=== PATIENT | female | born 1995 | race Caucasian/White ===

== ENCOUNTER 2023-06-20 16:06 | Emergency (ER) | payer OTHER, SELFPAY ==
[2023-06-20 16:14] VITALS: BP 149/84; PULSE 121; RESP 24; TEMP 37.6; O2SAT 100
--- NOTE | 2023-06-20 16:26 | ED.GENADULT ---
HPI - General Adult General Chief complaint: OB/Uterine Contractions Stated complaint: Shortness of Breath Time Seen by Provider: 06/20/23 16:26 Source: patient Mode of arrival: ambulatory Limitations: no limitations History of Present Illness HPI narrative: 27y/o female presented for c/o tunnel vision, dizziness, headaches, and chest heaviness for 3 days. At onset she felt dizzy, became pale, with profuse sweating and states she felt like she was incoherent for about 10 minutes. Since then she has had headaches unrelieved with tylenol. Denies vaginal bleeding, urinary complaints, nausea, vomiting, cough or wheezing. Reports hx pre-eclampsia, reports she was told she has MCI this . 25 weeks gestation. Related Data Home Medications Medication Instructions Recorded Confirmed vitamin-ferrous fumarate 1 tablet PO DAILY 06/20/23 06/20/23 28 mg iron-folic acid 800 mcg tablet ( Tablet) sertraline 50 mg tablet 50 mg PO DAILY 06/20/23 06/20/23 Allergies Allergy/AdvReac Type Severity Reaction Status Date / Time amoxicillin Allergy Mild Hives Verified 06/20/23 17:06 Review of Systems Review of Systems: CONSTITUTIONAL: Denies body aches, fever, chills, or sweats. EYES: reports visual changes, denies redness, or discharge. ENT: Denies rhinorrhea, congestion, sore throat, or otalgia. CARDIOVASCULAR: Denies chest pain, or edema. RESPIRATORY: Reports chest heaviness Denies cough or dyspnea. GASTROINTESTINAL: Denies abdominal pain, nausea, vomiting, or diarrhea. GENITOURINARY: Denies vaginal bleeding, dysuria or hematuria. SKIN: Denies rash, itching, or wounds. MUSCULOSKELETAL: Denies back pain, joint pain, or myalgia. NEUROLOGIC: reports dizziness, headache, denies numbness, tingling, or weakness. All systems reviewed & are unremarkable except as noted in HPI and below PMFSH Comments At time of signature, I have reviewed and agree with nursing past medical, surgical, social and family history unless otherwise noted. Please see nursing chart for further information. There is no relevant family history pertinent to the presenting complaint Exam Narrative: GENERAL: Well-appearing EYES: EOMI. No redness or drainage. Conjunctivae normal. ENT: Mucous membranes pink and moist. No rhinorrhea. TMs normal bilaterally. Throat normal. Uvula midline. NECK: Normal AROM. Supple. No lymphadenopathy. CHEST: No respiratory distress. Clear to auscultation. HEART: Regular rate and rhythm. No murmur appreciated. Normal peripheral pulses. ABDOMEN: Gravid. EXTREMITIES: Normal range of motion. No edema. SKIN: Warm, dry, no rash. Capillary refill normal. Normal skin turgor. NEURO: No focal deficits. Alert and oriented x3. Gait steady. PSYCH: Normal affect. Course Course Emergency Course: Patient is aware of diagnosis, understands and agrees to treatment plan. Anticipatory guidance given. Patient agrees to follow-up as directed and is aware of reasons to seek care at the emergency department. Portions of this record may have been created with voice recognition software Level of Care: Express Care Visit Vital Signs Vital signs: Vital Signs Temperature 99.7 F H 06/20/23 16:14 Pulse Rate 121 H 06/20/23 16:14 Respiratory Rate 24 H 06/20/23 16:14 Blood Pressure 149/84 H 06/20/23 16:14 Pulse Oximetry 100 06/20/23 16:14 Oxygen Delivery Room Air 06/20/23 16:14 Temperature 99.7 F H 06/20/23 16:14 Pulse Rate 121 H 06/20/23 16:14 Respiratory Rate 24 H 06/20/23 16:14 Blood Pressure 149/84 H 06/20/23 16:14 Pulse Oximetry 100 06/20/23 16:14 Oxygen Delivery Room Air 06/20/23 16:14 Transfer Transfered to: [facility] Transportation: Other (private vehicle) Transfer rationale: Pt is agreeable to transfer. Requests transfer to [facility] via private vehicle; refused ambulance. Risks of transportation reviewed with pt including injury,
[2023-06-20 16:37] LABS: Glucose Point of Care 102 mg/dl (65-105)
== END 2023-06-20 17:15 | disposition short-term general hospital (02) ==
PROVIDERS: Emergency Provider Nurse Practitioner Family
DX: O99.891 Other specified diseases and conditions complicating pregnancy (principal); R42 Dizziness and giddiness; Z3A.25 25 weeks gestation of pregnancy; Z20.822 Contact with and (suspected) exposure to COVID-19; O99.342 Other mental disorders complicating pregnancy, second trimester; F32.A Depression, unspecified
CPT/HCPCS: 82948; 87426; 87804; 99213; G0463

== ENCOUNTER 2023-07-28 13:32 | Outpatient (RCR) | payer OTHER, SELFPAY ==
[2023-07-30] MEDS: RHO(D) IMMUNE GLOBULIN 300 MCG/2 ML SYRINGE IM (15:21)
== END 2023-10-26 23:59 | disposition home or self-care (01) ==
LOC: ANHLAB 13:32
PROVIDERS: Visit Provider Obstetrics & Gynecology
DX: Z29.13 Encounter for prophylactic Rho(D) immune globulin (principal); O36.0190 Maternal care for anti-D [Rh] antibodies, unspecified trimester, not applicable or unspecified; Z3A.00 Weeks of gestation of pregnancy not specified
CPT/HCPCS: 36415; 85461; 86850; 86900; 86901; 90384; 96372; J2790

== ENCOUNTER 2023-08-08 16:10 | Outpatient (RCR) | payer OTHER, SELFPAY ==
[2023-08-08 17:35] VITALS: BP 126/70
== END 2023-11-06 23:59 | disposition home or self-care (01) ==
LOC: ANHOBOP 16:10
PROVIDERS: Visit Provider Obstetrics & Gynecology
DX: O36.8330 Maternal care for abnormalities of the fetal heart rate or rhythm, third trimester, not applicable or unspecified (principal); Z3A.32 32 weeks gestation of pregnancy
CPT/HCPCS: 59025

== ENCOUNTER 2023-09-26 06:23 | Inpatient (IN) | payer OTHER, SELFPAY ==
[2023-09-26] VITALS (86 sets, daily range): BP systolic 59–220; BP diastolic 44–198; PULSE 71–180; RESP 16; TEMP 36.1–37.1; O2SAT 91–100; BMI 35.5
--- NOTE | 2023-09-26 06:50 | LDADM ---
This patient, Ebonie Wiseman, was admitted to Labor/Delivery/Recovery 104 on 09/26/23 at 06:23. Plans for labor, pain management and were discussed with patient. Patient/family oriented to hospital policies and general routines including ID bracelet, bed and alarms, visiting hours, pain management, procedures, bathroom and other care routines, personal items, smoking policy, room service/diet and guest tray routines, security routines, and visiting hours. Patient/Family are encouraged to report perceived risks to care and to ask questions if they do not understand what they are told or what they should do. See OBIX for further documentation.
[2023-09-26 06:54] LABS: Hematocrit 37.6 % (37.0-47.0); Hemoglobin 12.9 g/dL (12.0-15.0); Immature Platelet Fraction Pct 7.7 % (0.9-11.2); Mean Corpuscular HGB Conc 34.3 g/dl (32-36); Mean Corpuscular Hemoglobin 32.1 pg (26-34); Mean Corpuscular Volume 93.5 fl (80-100); Mean Platelet Volume 10.7 fl (7.4-10.4); Platelet Count Result 111 k/mm3 (150-375); Red Blood Count 4.02 M/mm3 (4.2-5.4); Red Cell Distribution Width 16.1 % (11.5-14.5); White Blood Count 9.5 K/mm3 (4.5-10.0)
[2023-09-26] MEDS: LACTATED RINGERS 1,000 ML 125 ML IV CONT ×3 (06:59→08:57)
[2023-09-26] MEDS: OXYTOCIN 30 UNITS/NS 500 ML 30 UNITS/500 ML BAG IV CONT (06:59)
--- NOTE | 2023-09-26 07:27 | WPDHPUPDATE1 ---
History and Physical Update Update Date/Time: 09/26/23 07:27 28-year-old multiparous female at term presents for elective induction of labor. Cervix is 1/70/-1. Artificial rupture of membranes was performed. Clear fluid. Reassuring heart tones. Pitocin has been started. Expectant management. History and Physical has been reviewed, including an updated exam of the patient. There are NO changes in the patient's condition. Risks, benefits, and alternatives have been discussed and questions answered. Patient agrees to proceed with procedure.
--- NOTE | 2023-09-26 07:32 | WPDOBADMIT ---
Obstetrics - Admit Note Admission Note: record reviewed. No pertinent additions to the history and/or any subsequent changes in the physical findings that are not consistent with the expected course of the were found. Additions to the history and/or subsequent changes in the physical findings follow. Admit for IOL SVE /-2 arom moderate amount of clear, odorless fluid, anticipate vaginal delivery
[2023-09-26 07:48] LABS: HIV 1/2 Ab P24 Ag Result Negative (Negative)
[2023-09-26 07:57] LABS: Eosinophils Absolute Manual 0.09 K/mm3 (0.02-0.50); Eosinophils Percent Manual 1 % (0-4); Lymphocytes Absolute Manual 1.61 K/mm3 (1.1-4.5); Lymphocytes Percent Manual 17 % (18-44); Monocytes Absolute Manual 0.19 K/mm3 (0.1-0.90); Monocytes Percent Manual 2 % (3-9); Neutrophils Absolute Manual 7.69 K/mm3 (1.7-7.2); Neutrophils Percent Manual 80 % (46-73)
[2023-09-26 07:58] LABS: Platelet Estimate Decreased (Adequate); Schistocytes None Seen
[2023-09-26] MEDS: ONDANSETRON INJ 4 MG/2 ML VIAL IV PUSH (10:56)
[2023-09-26] MEDS: miSOPROStol 200 MCG TABLET 800 MCG (12:15)
--- NOTE | 2023-09-26 12:21 | PM.OBPRVD ---
OB - Vaginal Delivery Note Procedure Delivery date: 09/26/23 Induction method: AROM and Per Pitocin Protocol Delivery monitor: External FHT and Internal Uterine Route of delivery: Episiotomy description: None Laceration Description: None Specimen: No Quantitative Blood Loss (ml): 400 Anesthesia type: Epidural Disposition: Floor Complications: No immediate complications Baby Date of : 09/26/23 Time of : 11:56 Weeks of gestation at delivery: 39 gender: Male Weight (pounds): 7 Weight (ounces): 5 presentation: vertex Placenta delivery description: Manual Removal Cord Vessel Description: 3 Vessels score one minute: 7 score five minutes: 9
[2023-09-26] MEDS: ceFAZolin 2 GM/D5W 50 ML 2 GM/50 ML BAG IVPB (12:32)
[2023-09-26] MEDS: OXYTOCIN 30 UNITS/NS 500 ML 30 UNITS/500 ML BAG 125 UNITS IV CONT (12:40)
[2023-09-26] MEDS: WITCH HAZEL 40 PADS 1 PAD TOPICAL (14:25)
[2023-09-26] MEDS: BENZOCAINE 20% AER SPR (*SP) 56 GM CAN 1 SPRAY TOPICAL (14:25)
--- NOTE | 2023-09-26 14:37 | PC.NURSE ---
Patient transferred to post room #281 via wheel chair. Support person present. Oriented to unit, room, information board, rooming in, admission packet and security measures. Patient verbalizes understanding.
[2023-09-26] MEDS: IBUPROFEN 600 MG TABLET PO ×2 (15:56→23:07)
--- NOTE | 2023-09-26 17:09 | PC.NURSE ---
[facility] worker Aifelisha Mai called to notify us that [facility] was notified about this patient delivering and that she will be coming in tomorrow 09/27/2023 to see this patient. Ai Sergei's phone number is [phone]. Voice mail left for care coordination with this information.
[2023-09-26] MEDS: ACETAMINOPHEN 325 MG TABLET 650 MG PO (21:03)
[2023-09-27 00:56] VITALS: BP 133/77; PULSE 84; RESP 18; TEMP 36.8; O2SAT 97
[2023-09-27] MEDS: ACETAMINOPHEN 325 MG TABLET 650 MG PO ×3 (03:40→19:49)
[2023-09-27] MEDS: IBUPROFEN 600 MG TABLET PO ×3 (05:44→19:49)
[2023-09-27 06:09] LABS: Hematocrit 30.4 % (37.0-47.0); Hemoglobin 10.4 g/dL (12.0-15.0)
[2023-09-27 08:25] VITALS: BP 122/79; PULSE 90; RESP 16; TEMP 36.6; O2SAT 99
[2023-09-27] MEDS: buPROPion HCL XL (24 HR) 150 MG TABCR PO (09:10)
[2023-09-27] MEDS: MULTIVIT/MIN/PREN/FOL AC/IRON TABLET 1 TAB PO (09:11)
[2023-09-27] MEDS: SERTRALINE HCL 50 MG TABLET 100 MG PO (09:11)
--- NOTE | 2023-09-27 09:37 | PCCCNOTE ---
Care Coordination: Consult received mother has a history of meth us and has open DCFS. Mother was sober, but then had a relapse for a week early on in the per the DCFS worker. CC meet with pt. and baby in room. [facility] Ai Mai ([phone]) worker was already in the room and reported she works in the [employer] office. Pt. already has two other children not in her care Isabel (4 years old), Mathew (2) years old and now they will be taking baby boy Ivone in their custody as well at [place]. KATLYN Ngo aware of the above. Ai with [facility] denied need for case to be called in as they are already on the case and following. Ai aware per KATLYN Ngo did not see signs of withdraw, but another nurse thought pt. was having tremors but it was improving and may be due to other medications she was taking. Pt. is living at home with her parents and DCFS will contact her regarding her visits at [facility] which can be 12 hours a day, she just cannot stay the night with baby. Pt. was very tearful regarding the discussion. Father of the baby is currently in rehab and plans on doing 30 more days per mother's caser in [place]. Toxicology is still pending and Ai Mai with [facility] is aware. Baby to [place] with DCFS when medically ready, RN and mother aware of the above.
[2023-09-27 13:46] LABS: Rapid Plasma Reagin Non-Reactive (NonReactive)
--- NOTE | 2023-09-27 14:08 | WPDANLDPN2 ---
Anes-Prog Note L&D Date/Time: 09/27/23 14:08 Comfortable throughout: labor and delivery Neuraxial method: epidural Epidural/Spinal procedure site: clean & non-tender Neuro status: Neuro function grossly intact. Cardiovascular status: normal Respiratory status: normal Airway patency: baseline Mental status: baseline Post-Op hydration status: normal Vital Signs: Last Vital Signs Temp 36.6 C 09/27/23 08:25 Pulse 90 09/27/23 08:25 Resp 16 09/27/23 08:25 BP 122/79 09/27/23 08:25 Pulse Ox 99 09/27/23 08:25 O2 Del Method Room Air 09/27/23 07:13 Pain score (VAS): 1 I/O: Intake & Output 09/26/23 09/27/23 09/27/23 23:59 07:59 15:59 Intake Total 500 280 Balance 500 280 Post-procedural complaints: none Patient feedback: Patient satisfied with anesthetic care.
[2023-09-27 19:45] VITALS: BP 137/83; PULSE 86; RESP 18; TEMP 36.5; O2SAT 100
--- NOTE | 2023-09-27 21:33 | PM.OBPNVD ---
OB - PN: Subj Subjective Date/time seen: 09/27/23 21:33 Patient comments: no complaints, pain well controlled, incisional pain, tolerating diet and flatus present OB - PN: Obj Data Labs 09/27/23 05:50 Labs: Laboratory Results - last 24 hr 09/26/23 09/27/23 06:36 05:50 Hgb 10.4 L Hct 30.4 L RPR Non-reactive OB - PN A/P Plan day: 1 Plan: routine care Comments: No problems, routine care Time Spent With Patient Time: Total time spent is greater than 50% in coordination of care (as documented) at patient's floor/unit and/or counseling patient: Exam Const: General: comfortable, no acute distress and alert Resp: Effort & Inspection: normal respiratory effort Auscultation: no crackles, no rales and no rhonchi Cardio: Rate: regular rate Heart sounds: no click, no murmurs and no rubs GI: Inspection: non-distended GI Palp: No Tenderness to palpation present (GI) Auscultation: normal bowel sounds Other: Incision - CDI Extrem: General: normal to inspection, no pedal edema and no calf tenderness
[2023-09-28] MEDS: IBUPROFEN 600 MG TABLET PO ×3 (02:17→19:10)
[2023-09-28] MEDS: ACETAMINOPHEN 325 MG TABLET 650 MG PO ×2 (02:17→19:10)
[2023-09-28 07:30] VITALS: BP 124/78; PULSE 88; RESP 16; TEMP 36.6; O2SAT 99
--- NOTE | 2023-09-28 07:47 | PM.OBPNVD ---
OB - PN: Subj Subjective Date/time seen: 09/28/23 07:47 Narrative: pp day 2 baby in DCFS custody, monitoring for withdrawl no complaints OB - PN: Obj Data Labs 09/27/23 05:50 Labs: Laboratory Results - last 24 hr 09/26/23 06:36 RPR Non-reactive OB - PN A/P Plan day: 2 Plan: routine care and discharge home Time Spent With Patient Time: Total time spent is greater than 50% in coordination of care (as documented) at patient's floor/unit and/or counseling patient: Review of Systems Review of Systems: All systems reviewed & are unremarkable except as noted in HPI and below Exam Const: General: cooperative and healthy appearing Resp: Effort & Inspection: normal respiratory effort Cardio: Rate: regular rate Skin: General skin exam: normal color
--- NOTE | 2023-09-28 07:49 | PM.OBDSVD ---
DS: Admitting Diagnosis Discharge Date 09/28/23 Admitting Diagnosis IOL DS: Discharge Diagnosis Discharge Diagnosis (1) Vaginal delivery: Code(s): O80 - Encounter for full-term uncomplicated delivery Status: Acute OB - DS: Summary OB Procedures : None OB Procedures Intrapartum: Spontaneous Vag Delivery OB Procedures: : None Peripartum Data Laceration Description: None Episiotomy description: None Time Spent with Patient Time attestation: Total time spent providing and/or coordinating discharge services: DS: Data Data Completed and Pending Labs on day of discharge: Labs from last 24 hours 09/26/23 06:36 RPR Non-reactive Discharge Plan Discharge Attending physician on discharge: Beau Koehler Discharging Clinician: Aure Yepez Patient Disposition: Home, Self-Care Activity: pelvic rest Diet: regular Patient Instructions: Antibiotic Form, Electronic Cigarettes and Your Health (GEN) Stand Alone Forms: General Discharge Information Follow-up/Referrals: Beau Koehler MD [Physician] - 2 Weeks Discharge Medications: New ibuprofen 600 mg Tablet 600 mg PO Q6H PRN (Reason: Cramping) Qty: 20 0RF Continued sertraline 50 mg tablet 100 mg PO DAILY MDD 100 vit-iron fum-folic ac [ Tablet] 28 mg iron- 800 mcg Tablet 1 tablet PO DAILY bupropion HCl [Wellbutrin XL] 150 mg Tablet Extended Release 24 Hr 150 mg PO QAM Date of admission: 09/26/23 06:23 Primary Care Provider: UNKNOWN,DOCTOR Admitting Provider: Beau Koehler Attending physician on admission: Beau Koehler Condition: Stable
[2023-09-28] MEDS: WITCH HAZEL 40 PADS 1 PAD TOPICAL (07:55)
[2023-09-28] MEDS: BENZOCAINE 20% AER SPR (*SP) 56 GM CAN 1 SPRAY TOPICAL (07:55)
[2023-09-28] MEDS: buPROPion HCL XL (24 HR) 150 MG TABCR PO (07:55)
[2023-09-28] MEDS: DOCUSATE SODIUM 100 MG CAPSULE PO (07:55)
[2023-09-28] MEDS: SERTRALINE HCL 50 MG TABLET 100 MG PO (07:56)
--- NOTE | 2023-09-28 19:55 | PC.NURSE ---
1237 RN called and spoke with Care Coordination, let them know that the mother would be discharged to a No Care Bed later this evening and baby would be staying for a total of 5 days to monitor for symptoms of withdrawal per the Advertising Project Manager. RN would like to know if it is ok for the mother to stay with the baby overnight in the room and still care for him? Per Care Coordination should be ok for mother to stay until DCFS comes and takes custody. RN is going to call [facility] to clarify. 1243 RN left message on voicemail of Ai Mai ([facility] dependency case manager for baby) #[phone] to call the hospital. 1330 RN spoke with the mother's own dependency case manager with [facility], Stefanie Casanova #[phone], per Stefanie, she will try to contact Ai Mai as well and call the RN back. 1509 RN spoke with Stefanie Casanova, who says she spoke with Ai Mai, and it is OK for baby to stay with the mother in an assigned room and visitors are OK as well. The mother is NOT able to leave with the baby and she is aware. RN also asked Stefanie, who will be giving medical consent for the baby and since the mother already signed the consent for the circumcision, is that ok to keep on file and use that consent to circumcise baby in the next few days before discharge? Stefanie is going to talk with Ai and have her call this RN. 1518 RN spoke with Ai Mai, per her, baby was taken into protective custody by [facility] as of 09/27/23 @ 2125. This RN was not aware of this and neither was Madhuri Kohler RN, who took care of the patient and the baby for the last shift. Per Ai, it is ok to use the signed consent for the circumcision to be done before discharge. IF in the event that there would be any other consents needed, the mother CANNOT sign, we need to call the [facility] Consent # and give them the baby's RIN #[id number]. The plan is to hopefully discharge baby on Sunday10/01/23 to the paternal grandmother through [facility]. Whoever is discharging should call Ai Mai #[phone] and let her know, she is in court for this case on Sunday @ 0900 but will be able to come later and do the discharge. Copy of note to be put in baby's chart
== END 2023-09-28 19:43 | disposition home or self-care (01) | DRG 807 ==
LOC: ANHLDR 06:27 → ANHOB2 15:09
PROVIDERS: Admitting Provider Obstetrics & Gynecology; Visit Provider Obstetrics & Gynecology
DX: O69.81X0 Labor and delivery complicated by cord around neck, without compression, not applicable or unspecified (principal); Z37.0 Single live birth; Z3A.39 39 weeks gestation of pregnancy
CPT/HCPCS: 36415; 85014; 85018; 85025; 85055; 86592; 86703; 86850; 86880; 86900; 86901; 86902; A9270; G0432; J0690; J2405; J2590; J2795; J7120

== ENCOUNTER 2024-03-17 12:30 | Emergency (ER) | payer OTHER, SELFPAY ==
[2024-03-17 12:37] VITALS: BP 139/91; PULSE 117; RESP 18; TEMP 37.3; O2SAT 100
--- NOTE | 2024-03-17 13:21 | ED.URI ---
HPI - URI/Sore Throat General Chief Complaint: Upper Respiratory Infection Stated Complaint: cold/flu symptoms Time Seen by Provider: 03/17/24 13:15 Source: patient, RN notes reviewed and old records reviewed Mode of arrival: ambulatory Limitations: no limitations History of Present Illness HPI Narrative: 28-year-old female presents to [facility] with complaints of 2 week duration cough, sinus congestion and drainage, some intermittent fevers with chills. Patient reports that when her symptoms first started she had some ear discomfort and some sore throat but that has resolved. Patient reports that she coughs so much at night that she is not resting. Ptient reports that she has been taking Mucinex, Flonase cough drops and some Tylenol for her symptoms. MD elicited complaint: fever (intermittent low grade), cough, rhinorrhea and nasal congestion Onset (ago): week(s) (2) Severity: moderate Description of mucous: clear Able to tolerate fluids by mouth: Yes Treatments prior to arrival: acetaminophen and other (Mucinex, Flonase,Tylenol, cough drops) Related Data Home Medications ?Medication ?Instructions ?Recorded ?Confirmed ?Last Taken ?Type vitamin-ferrous fumarate 1 tablet PO DAILY 06/20/23 09/26/23 09/26/23 History 28 mg iron-folic acid 800 mcg tablet ( Tablet) sertraline 50 mg tablet 100 mg PO DAILY 06/20/23 09/26/23 09/26/23 History 0600 bupropion HCl 150 mg 24 hr tablet, 150 mg PO QAM 08/10/23 09/26/23 09/26/23 History extended release (Wellbutrin XL) 0600 naltrexone 50 mg tablet mg 03/17/24 Unknown History topiramate 25 mg tablet mg 03/17/24 Unknown History Allergies Allergy/AdvReac Type Severity Reaction Status Date / Time amoxicillin Allergy Mild Hives Verified 09/14/23 13:36 Review of Systems Review of Systems: CONSTITUTIONAL: Reports malaise,intermittent chills, sweats, or fever. EYES: Denies visual changes, redness, or discharge. ENT: Reports rhinorrhea, congestion, sinus pain, no otalgia and no sore throat. CARDIOVASCULAR: Denies chest pain, palpitations, or edema. RESPIRATORY: Reports cough.? Denies dyspnea. GASTROINTESTINAL: Denies abdominal pain, nausea, vomiting, diarrhea SKIN: Denies rash or itching. MUSCULOSKELETAL: Denies myalgia. NEUROLOGIC: Denies headache. 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 There is no relevant family history pertinent to the presenting complaint Exam Narrative: GENERAL: Well-appearing, well-nourished, and in no acute distress. HEAD: Normocephalic EYES: PERRLA, conjunctivae clear ENT: Nares clear, turbinates edematous and erythematous, clear discharge. Mucous membranes moist. TM pearly kent with dull light reflex bilaterally; no tragal tenderness. Oropharynx erythematous without lesions. Tonsils not present and throat without exudate, no drooling, no hoarseness, no trismus, uvula midline.post nasal drainage NECK: Supple. No lymphadenopathy CHEST: Clear to auscultation, breath sounds equal. No wheezing, rhonchi, rales, or stridor. No respiratory distress, speaks in full sentences. no tachypnea, cough noted SAO2 100% on room air HEART: Regular rate and rhythm. No murmur heard. SKIN: Warm, dry, no rash. NEURO: Alert and oriented x3. PSYCH: Normal mood and affect Course Course Emergency Course: Patient is aware of diagnosis, understands and agrees to treatment plan.? Anticipatory guidance given.? Patient agrees to follow-up as directed and is aware of reasons to seek care at the emergency department. Portions of this record may have been created with voice recognition software Level of Care: Express Care Visit Vital Signs Vital signs: Vital Signs Temperature 37.3 C 03/17/24 12:37 Pulse Rate 117 H 03/17/24 12:37 Respiratory Rate 18 03/17/24 12:37 Blood Pressure 139/91 H 03/17/24 12:37 Pulse Oximetry 100 03/17/24 12:37 Oxygen Delivery Room Air 03/17/24 12:37 Temperature 37.3 C 03/17/24 12:37 Pulse Rate 117 H 03/17/24 12:37 Respiratory Rate 18 03/17/24 12:37 Blood Pressure 139/91 H 03/17/24 12:37 Pulse Oximetry 100 03/17/24 12:37 Oxygen Delivery Room Air 03/17/24 12:37 Reviewed MDM - URI/Sore Throat MDM Narrative Medical decision making narrative: Differential diagnosis considered: Wahl virus, strep pharyngitis, allergic rhinitis, upper respiratory tract infection, sinusitis, rhinosinusitis, nasopharyngitis. viral pharyngitis, otitis media, otitis externa, pneumonia, bronchitis, viral cough syndrome, viral syndrome, and influenza.? Exam findings show no acute concerns or changes; patient is non-toxic appearing and is in no distress.? Patient is appropriate for outpatient treatment and follow-up. Differential Diagnosis Differential diagnosis: Likely upper respiratory infection, sinusitis, viral infection and other (acute cough) Medical Records Attestation: I reviewed the patient's medical records. Lab Data Attestation: I reviewed the patient's lab results. Critical Care Time Critical Care Time Critical Care Time: No Discharge Plan Discharge Clinical Impression: Sinusitis Qualifiers: Sinusitis location: pansinusitis Chronicity: acute Recurrence: non-recurrent Qualified Code(s): J01.40 - Acute pansinusitis, unspecified Patient Disposition: Home, Self-Care Condition: Stable Instructions: Antibiotic Form, Sinusitis (ED) Additional Instructions: Increase fluids especially juices and water Tpuj-sts-[id number] cough and cold medicine of your choice for your symptoms Zyrtec Claritin or Debo daily heat to the face 20-30 minutes 4-6 times a day for pain Salt water gargles, throat lozenges or throat sprays as desired Antibiotic as directed--finished the medication If your symptoms persist, change or worsen significantly before you can contact your personal physician then please, without delay, go to the emergency department for further evaluation. Follow-up with PCP in 7-10 days or sooner if needed Follow up with PCP soon in regards to your blood pressure which is elevated above threshold for referral. Blood pressure above 120/80 may indicate pre-hypertension. Tylenol or ibuprofen for any fever pain monitor for any fevers Patient Language: [place] Prescriptions: New azithromycin 250 mg tablet See Rx Instructions .ROUTE .COMPLEX Qty: 6 0RF Rx Instructions: For 250 mg dose pack: take 500 mg today (day 1), then 250 mg for 4 days (days 2-5) methylprednisolone [Medrol (Tono)] 4 mg tablets,dose pack See Rx Instructions .ROUTE .COMPLEX Qty: 21 0RF Rx Instructions: orally per package directions No Action sertraline 50 mg tablet 100 mg PO DAILY MDD 100 vit-iron fum-folic ac [ Tablet] 28 mg iron- 800 mcg Tablet 1 tablet PO DAILY naltrexone 50 mg tablet topiramate 25 mg tablet bupropion HCl [Wellbutrin XL] 150 mg Tablet Extended Release 24 Hr 150 mg PO QAM ibuprofen 600 mg Tablet 600 mg PO Q6H PRN (Reason: Cramping) Qty: 20 0RF Follow-up/Referrals: PHYSICIAN NOT ON STAFF,NONSTAFF [Primary Care Provider] - Time of Disposition: 13:34 Quality [place] Coma Scale Eyes: Open Verbal: Oriented and Alert Motor: Follows Commands [place] Coma Total Score: 15
== END 2024-03-17 13:39 | disposition home or self-care (01) ==
PROVIDERS: Emergency Provider Registered Nurse
DX: J01.40 Acute pansinusitis, unspecified (principal); F41.9 Anxiety disorder, unspecified; F32.A Depression, unspecified; Z87.891 Personal history of nicotine dependence
CPT/HCPCS: 99213; G0463

== ENCOUNTER 2025-01-28 17:01 | Emergency (ER) | payer OTHER, SELFPAY ==
--- OUTSIDE RECORDS SUMMARY | 2013-10-30 01:30 | XMS_ITS | Continuity of Care Document ---
Author Organization [facility] Address [id number] [place] [address] [address] [place] [address] Phone Care Team Providers Care Protection [employer] Name Role Phone Francine Limon OD Unavailable Unavailable Allergies, Adverse Reactions, Alerts Substance Reaction Status Criticality No Known allergies Medications Medication Instructions Dosage Effective Dates (start - stop) Status Comments Aubra 0.1 mg-20 mcg tablet take 1 tablet by oral route every day 1.00 tablet - Active Procedures Procedure Date EYE EXAM, NEW PATIENT REFRACTION CORNEAL TOPOGRAPHY Advance Directives Directive Yes / No Effective Date File Name No Information Encounters Encounter Description Practice Location Reason(s) For Visit Diagnoses Date Provider Providers Copied on Encounter [facility], [id number] [place] [address] [address], [place], [place], [id number], tel:[phone] Oph Consult [facility] Office Accommodative component in esotropiaAmblyop ia, unspecifiedHyper metropia [address] Braxton Escamilla. [address], [place], [place], [id number] , [place]. tel:[phone] Referring Provider: Francine Meneses, [address], [place], [address] . tel:[phone] Family History Family Member Type Diagnosis Age At Onset No Information Payers Payer name Insurance type Covered republican ID Authoriza titasneem(s) [facility] [facility] Social History Type Description Quantity Date Captured Comments Alcohol Use Details No Caffeine Use Details Unknown Tobacco Use Status No Information Smoking Status Never smoker Sex Female Chief Complaint And Reason For Visit No Information Reason For Referral Reason For Referral No Information History Of Present Illness Encounter Date Complaint History Of Prese nt Illness No Information Functional Status Date Functional Assessmen t No Information Instructions Date Instruction Additional Infor burke Accommodative compon ent in esotropia OS - No surgery,Hx of patching. Will continue to observe. Related to Accommodative component in esotropia - Return in PRN with Francine Limon OD for Complete Exam. Related to Amblyopia, unspecified Amblyopia, unspecifi ed OS - Advised patient of condition. Will continue to observe. Related to Amblyopia, unspecified Hypermetropia OU - N ormal exam today-OU. No Keratoconus or Lattice Degeneration. Active CLs from [facility] pt. Maximus today was normal-OU. Related to Hypermetropia Assessments Type Assessment Date No Information Patient Care Teams Name Effective Dates (start - stop) Status Members No Information
--- OUTSIDE RECORDS SUMMARY | 2025-01-28 17:04 | XMS_ITS | Data Portability ---
Author Organization [facility] [place] Address [address] [place] [place] [address] [place] [address] Assessment No assessment recorded. Plan of Treatment Reminders Order Date Submit Date Provider Last Modified By Organization Details Last Modified Time Details Appointments None recorded. Lab None recorded. Referral None recorded. Procedures None recorded. Surgeries None recorded. Imaging non-stress test 2023 024 [email or web address] [place], [address], [place], [address], 4 06:31:18 US, obstetric, biophysical profile + non-stress test 2023 024 [email or web address] [place], [address], [address], [place], [address], 4 20:10:07 Medication Orders Loestrin Fe 04/07 (28-Day) 1 mg-20 mcg (21)/75 mg (7) tablet 2023 024 [facility], [address] [place], [address], 4 13:15:51 Patient TargetsNo targets recorded. Patient InstructionsNo instructions recorded. Reason for Referral None Reported. Results Created Date Observation Date Name Description Value Unit Range Abnormal Flag Note LastModifiedBy Organization Detail LastModifiedTime 08/22/19 24 08/22/2023 drug scree n, urine Amphetamines : negati ve Not Available [place] [address], [place], [address], 08/22/2023 16:49:21 08/22/19 24 08/22/2023 drug scree n, urine Cannabinoids : negati ve Not Available [place] [address], [place], [address], 08/22/2023 16:49:21 08/22/19 24 08/22/2023 drug scree n, urine Cocaine: negati ve Not Available [place] [address], [place], [address], 08/22/2023 16:49:21 08/22/19 24 08/22/2023 drug scree n, urine Opiates: negati ve Not Available [place] [address], [place], [address], 08/22/2023 16:49:21 08/22/19 24 08/22/2023 drug scree n, urine Phenocyclidi ne: negati ve Not Available [place] [address], [place], [address], 08/22/2023 16:49:21 08/22/19 24 08/22/2023 drug scree n, urine Barbiturates : negati ve Not Available [place] [address], [place], [address], 08/22/2023 16:49:21 08/22/19 24 08/22/2023 drug scree n, urine Benzodiazepi madina: negati ve Not Available [place] [address], [place], [address], 08/22/2023 16:49:21 08/22/19 24 08/22/2023 drug scree n, urine Ethanol: negati ve Not Available [place] [address], [place], [address], 08/22/2023 16:49:21 08/22/19 24 08/22/2023 drug scree n, urine Hallucinogen s: negati ve Not Available [place] [address], [place], [address], 08/22/2023 16:49:21 08/22/19 24 08/22/2023 drug scree n, urine Inhalants: negati ve Not Available [place] [address], [place], [address], 08/22/2023 16:49:21 08/22/19 24 08/22/2023 drug scree n, urine Anabolic Steroids: negati ve Not Available [place] [address], [place], [address], 08/22/2023 16:49:21 09/06/19 24 09/06/2023 CULTU RE: URINE result report SEE RESULT S BELOW Test: Cultu re: Urine Speci men Sourc e: Urine - Clean Catch Speci men Type: Urine Speci men Date: 2023 4:48 PM Resul t Date: 2023 2:27 AM Resul t Statu s: Final resul t Abnor mal: No Resul ting Lab: [facility] [address] [facility] [address] Tel: CULTU RE ----- ----- ----- --- No growt h in 1 day (dete ction level of 10,00 0 colon ies / ml.) Not Available [facility] (Lab) [address] [facility], [place], [address], 09/08/2023 03:31:56 09/06/19 24 09/06/2023 CULTU RE: GROUP B STREP SCREE N, REFLE X SUSCE PTIBI LITY result report SEE RESULT S BELOW Test: Cultu re: Group B Strep , Refle x Susce ptibi lity ([facility]/ [facility] ) Speci men Sourc e: Vagin a/Rec ez Speci men Type: Vagin al/Re ctal Speci men Date: 2023 1649 Resul t Date: 2023 1430 Resul t Statu s: Final resul t Abnor mal: No Resul lizethg Lab: [facility] [address] [facility] [address] Tel: CULTU RE ----- ----- ----- --- No Group B strep isola teresa at 2 days (wilma ctive broth enhan cemen t) Not Available [facility] (Lab) [address], [place], [address], 09/09/2023 15:32:42 09/06/19 24 09/06/2023 urina lysis , dipst ick Leukocytes ++ Not Available [facility] [address], [place], [address], 09/06/2023 16:12:41 09/06/19 24 09/06/2023 urina lysis , dipst ick Protein ++ Not Available [place] [address], [place], [address], 09/06/2023 16:12:41 09/06/19 24 09/06/2023 urina lysis , dipst ick pH 5 Not Available [place] [address], [place], [address], 09/06/2023 16:12:41 09/06/19 24 09/06/2023 urina lysis , dipst ick Specific Hurley 1.030 [facility] Available [facility] [address], [place], [address], 09/06/2023 16:12:41 09/06/19 24 09/06/2023 drug scree n, urine Amphetamines : negati ve Not Available [place] [address], [place], [address], 09/06/2023 16:12:36 09/06/19 24 09/06/2023 drug scree n, urine Cannabinoids : negati ve Not Available [place] [address], [place], [address], 09/06/2023 16:12:36 09/06/19 24 09/06/2023 drug scree n, urine Cocaine: negati ve Not Available [place] [address], [place], [address], 09/06/2023 16:12:36 09/06/19 24 09/06/2023 drug scree n, urine Opiates: negati ve Not Available [place] [address], [place], [address], 09/06/2023 16:12:36 09/06/19 24 09/06/2023 drug scree n, urine Phenocyclidi ne: negati ve Not Available [place] [address], [place], [address], 09/06/2023 16:12:36 09/06/19 24 09/06/2023 drug scree n, urine Barbiturates : negati ve Not Available [place] [address], [place], [address], 09/06/2023 16:12:36 09/06/19 24 09/06/2023 drug scree n, urine Benzodiazepi madina: negati ve Not Available [place] [address], [place], [address], 09/06/2023 16:12:36 09/06/19 24 09/06/2023 drug scree n, urine Ethanol: negati ve Not Available [place] [address], [place], [address], 09/06/2023 16:12:36 09/06/19 24 09/06/2023 drug scree n, urine Hallucinogen s: negati ve Not Available [place] [address], [place], [address], 09/06/2023 16:12:36 09/06/19 24 09/06/2023 drug scree n, urine Inhalants: negati ve Not Available [place] [address], [place], [address], 09/06/2023 16:12:36 09/06/19 24 09/06/2023 drug scree n, urine Anabolic Steroids: negati ve Not Available [place] [address], [place], [address], 09/06/2023 16:12:36 09/12/19 24 09/12/2023 drug scree n, urine Amphetamines : negati ve Not Available [place] [address], [place], [address], 09/12/2023 17:18:27 09/12/19 24 09/12/2023 drug scree n, urine Cannabinoids : negati ve Not Available [place] [address], [place], [address], 09/12/2023 17:18:27 09/12/19 24 09/12/2023 drug scree n, urine Cocaine: negati ve Not Available [place] [address], [place], [address], 09/12/2023 17:18:27 09/12/19 24 09/12/2023 drug scree n, urine Opiates: negati ve Not Available [place] [address], [place], [address], 09/12/2023 17:18:27 09/12/19 24 09/12/2023 drug scree n, urine Phenocyclidi ne: negati ve Not Available [place] [address], [place], [address], 09/12/2023 17:18:27 09/12/19 24 09/12/2023 drug scree n, urine Barbiturates : negati ve Not Available [place] [address], [place], [address], 09/12/2023 17:18:27 09/12/19 24 09/12/2023 drug scree n, urine Benzodiazepi madina: negati ve Not Available [place] [address], [place], [address], 09/12/2023 17:18:27 09/12/19 24 09/12/2023 drug scree n, urine Ethanol: negati ve Not Available [place] [address], [place], [address], 09/12/2023 17:18:27 09/12/19 24 09/12/2023 drug scree n, urine Hallucinogen s: negati ve Not Available [place] [address], [place], [address], 09/12/2023 17:18:27 09/12/19 24 09/12/2023 drug scree n, urine Inhalants: negati ve Not Available [place] [address], [place], [address], 09/12/2023 17:18:27 09/12/19 24 09/12/2023 drug scree n, urine Anabolic Steroids: negati ve Not Available [place] [address], [place], [address], 09/12/2023 17:18:27 09/12/19 24 09/12/2023 drug scree n, urine Other: negati ve Not Available [place] [address], [place], [address], 09/12/2023 17:18:27 11/01/19 24 11/01/2023 CULTU RE: HERPE S SIMPL EX VIRUS (HSV) , REFLE X TYPIN G source LESOIN FLUID Not Available [facility] (Lab) [address] [facility], [place], [address], 11/04/2023 05:25:45 11/01/19 24 11/01/2023 CULTU RE: HERPE S SIMPL EX VIRUS (HSV) , REFLE X TYPIN G hsv culture, body fluid NOT ISOLAT ED Perfo rming Organ izati on Infor matio n: Site ID: CB Name: Angel Johnson Addre ss: [address] [place] [address] Direc tor: Chay barrow V Agueda s Not Available [facility] (Lab) [address] [facility], [place], [address], 11/04/2023 05:25:45 08/22/19 24 08/22/2023 US, obste tric, bioph ysica l profi le + non-s tress test No observ ation record ed. [email or web address] [address], [place], [address], 08/22/2023 17:08:32 08/22/19 24 08/22/2023 US, obste tric, bioph ysica l profi le + non-s tress test No observ ation record ed. YANIRAMOUNIKA Schilling [address], [place], [address], 09/08/2023 18:38:16 08/22/19 24 08/22/2023 non-s tress test No observ ation record ed[facility] [place] [address] [address], [place], [address], 08/22/2023 15:43:41 08/29/19 24 08/29/2023 US, obste tric, bioph ysica l profi le + non-s tress test No observ ation record ed. [email or web address] [place] [address], [place], [address], 08/29/2023 17:10:21 08/29/19 24 08/29/2023 US, obste tric, bioph ysica l profi le + non-s tress test No observ ation record ed. [email or web address] Tonie [address], [place], [address], 08/29/2023 21:49:19 08/29/19 24 08/29/2023 non-s tress test No observ ation record ed. [email or web address] [place] [address], [place], [address], 08/29/2023 16:14:51 09/06/19 24 09/06/2023 US, obste tric, follo w-up No observ ation record ed. [email or web address] [place] [address], [place], [address], 09/06/2023 16:42:39 09/06/19 24 09/06/2023 US, obste tric, bioph ysica l profi le + non-s tress test No observ ation record ed. [email or web address] [place] [address], [place], [address], 09/06/2023 16:42:28 09/06/19 24 09/06/2023 non-s tress test No observ ation record ed. [email or web address] [place] [address], [place], [address], 09/06/2023 16:11:22 09/06/19 24 09/06/2023 US, obste tric, follo w-up No observ ation record ed. YANIRA Tonie [address], [place], [address], 09/08/2023 18:38:16 09/12/19 24 09/12/2023 US, obste tric, bioph ysica l profi le + non-s tress test No observ ation record ed. [email or web address] [place] [address], [place], [address], 09/12/2023 18:14:28 09/12/19 24 09/12/2023 non-s tress test No observ ation record ed. [email or web address] [place] [address], [place], [address], 09/12/2023 15:10:30 09/12/19 24 09/12/2023 US, obste tric, follo w-up No observ ation record ed. [email or web address] Tonie [address], [place], [address], 09/13/2023 09:49:43 09/19/19 24 09/19/2023 US, obste tric, bioph ysica l profi le + non-s tress test No observ ation record ed. [email or web address] [place] [address], [place], [address], 09/19/2023 16:30:30 09/19/19 24 09/19/2023 US, obste tric, bioph ysica l profi le + non-s tress test No observ ation record ed. [email or web address] Tonie [address], [place], [address], 09/19/2023 22:48:13 09/19/19 24 09/19/2023 non-s tress test No observ ation record ed. [email or web address] [place] [address], [place], [address], 09/19/2023 16:05:04 11/20/19 24 08/08/2023 disch arge order * No observ ation record ed. [facility] (Medical Records) [address], [place], [address], 11/20/2023 16:15:11 Result Notes None recorded. Problems Name Problem SNOMED Code Status Onset Date Resolution Date Notes Provider Name and Address Organization Details Recorded Time Anemia of pregnanc y 72406397 Completed 07/29 - Pt cannot afford IV iron at this time. Rx sent for BID iron Nikhil Dominguez [facility] 4 14:38:02 Past pregnanc y history of pre-ecla mpsia 44837741854 9100 Completed X2 Nikhil Dominguez [facility] 4 14:38:02 RhD negative 865544570 Completed rhogam at 28wks Nikhil Dominguez [facility] 4 14:38:02 Chronic depressi on 039225301 Com[facility] 4 14:38:02 Pregnanc y-induce d hyperten dariela 76826759 Completed Nikhil Dominguez [facility] 4 14:38:02 Addictio n [id number] Completed history of meth addictio n, in recovery , in program at [facility], has patient case coordinator Nikhil Dominguez [facility] 4 14:38:02 Pregnanc y 72960181 Completed 202309/28/[address] [facility] 4 14:38:08 Problem Notes None recorded. Procedures Surgical History Date Name Laterality Status Provider Name and Address Organization Details Recorded Time 03/19/2021 Date of Last Pap Smear completed Erma Early [facility] 07/12/2023 11:07:26 Imaging Results None recorded. Procedure Notes None recorded. Medical Equipment None Reported. Allergies Allergen ID Allergen Name Allergen Category Reaction Reaction Severity Criticality Documentation Date Start Date Code Code System Note Provider Name and Address Organization Details Recorded Time 90980 amoxicill in medicatio n hives Not available Not available 02/28/2023 723 RxNorm Sofía Burns [facility] 3 13:51:44 Medications Name Sig Start Date Stop Date Status Note LastModified by Organization Details LastModified Time sertraline 100 mg tablet Take 1 tablet by mouth once daily active Not Available Not Available No t Available nifedipine ER 30 mg tablet,exten ded release TAKE 2 TABLETS BY MOUTH ONCE DAILY 02/28 completed Not Available Not Available Not Available lancets 09/05 completed Not Available Not Available Not Available OneTouch Ultra Test strips USE STRIP TO CHECK GLUCOSE 4 TIMES DAILY (IN THE MORNING WHILE FASTING AND THEN 1 HOUR AFTER EACH MEAL) 08/28 completed Not Available Not Available Not Available promethazine 25 mg tablet TAKE 1 TABLET BY MOUTH EVERY 4 HOURS 08/28 completed Not Available Not Available Not Available docusate sodium 100 mg capsule TAKE 1 CAPSULE BY MOUTH TWICE DAILY 02/28 completed Not Available Not Available Not Available ibuprofen 600 mg tablet TAKE 1 TABLET BY MOUTH EVERY 6 HOURS NEEDED FOR CRAMPS active Not Available Not Available No t Available norethindron e (contracepti ve) 0.35 mg tablet TAKE 1 TABLET BY MOUTH ONCE DAILY 02/28 completed Not Available Not Available Not Available sertraline 50 mg tablet TAKE 1 TABLET BY MOUTH ONCE DAILY 08/28 completed Not Available Not Available Not Available bupropion HCl XL 150 mg 24 hr tablet, extended release Take 1 tablet by mouth once daily active Not Available Not Available No t Available 10/31 completed Not Available Not Available Not Available multivitamin 10/31 completed Not Available Not Available Not Available FeroSul 325 mg (65 mg iron) tablet TAKE 1 TABLET BY MOUTH TWICE DAILY 08/28 completed Not Available Not Available Not Available FreeStyle [place] Lite 08/28 completed Not Available Not Available Not Available Mervat Fe 04/07 (28) 1 mg-20 mcg (21)/75 mg (7) tablet Take 1 tablet by mouth once daily active Not Available Not Available No t Available OneTouch Ultra2 Meter USE TO CHECK GLUCOSE 4 TIMES DAILY (IN THE MORNING WHILE FASTING AND THEN 1 HOUR AFTER EACH MEAL) 08/28 completed Not Available Not Available Not Available OneTouch Delica Plus Lancet 33 gauge USE LANCET TO CHECK GLUCOSE 4 TIMES DAILY (IN THE MORNING WHILE FASTING AND THEN 1 HOUR AFTER EACH MEAL) 08/28 completed Not Available Not Available Not Available Vitals Date Recorded Body weight Provider Name an d Address Organization Details Last Updated DateTime 09/19/2023 79207.466491 g Erinn KIMBALL [address], [place], [address], [facility] 09/19/2023 16:27:56 Date Recorded Body height Body mass index (BMI) Systolic And Diastolic Provider Name and Address Organization Details Last Updated DateTime 09/19/2023 160.02 cm 35.7 kg/m2 138/74 mm[Hg] [facility] 09/19/2023 16:18:09 Date Recorded Body height Body mass index (BMI) Body weight Systolic And Diastolic Provider Name and Address Organization Details Last Updated DateTime 10/19/2023 160.02 cm 30.6 kg/m2 45161.48 g 125/92 mm[Hg] Tawana Martinez [facility] 10/19/2023 12:59:19 Date Recorded Body height Body mass index (BMI) Body weight Systolic And Diastolic Provider Name and Address Organization Details Last Updated DateTime 11/01/2023 160.02 cm 30.6 kg/m2 83941.76 g 143/92 mm[Hg] [facility] 11/01/2023 17:29:23 Social History Question Answer Notes LastModified by Organizat ion Details LastModified Time Are You Blind Or Do You Have Difficulty Seeing? No [email or web address] Information not available 07/12/2023 In The 14 Days Before Symptom Onset, Have You Had Close Contact With A Laboratory-confirmed COVID-19 While That Case Was Ill? No [email or web address] Information not available 07/12/2023 In The 14 Days Before Symptom Onset, Have You Had Close Contact With A Person Who Is Under Investigation For COVID-19 While That Person Was Ill? No [email or web address] Information not available 07/12/2023 Have You Been To An Area Known To Be High Risk For COVID-19? No [email or web address] Information not available 07/12/2023 Are You Deaf Or Do You Have Serious Difficulty Hearing? No [email or web address] Information not available 07/12/2023 Do You Use Your Seat Belt Or Car Seat Routinely? Yes [email or web address] Information not available 07/12/2023 Are You Sexually Active? Yes [email or web address] Information not available 07/12/2023 Do You Have Smoke And Carbon Monoxide Detectors In Your Home? Yes [email or web address] Information not available 07/12/2023 Do You Use Sunscreen Routinely? Yes Information not available 07/12/2023 Do You Have Difficulty Walking Or Climbing Stairs? No Information not available 07/12/2023 Sex: Unknown Functional Status Question Answer Note LastModified by Organizat ion Details LastModified Time Do you use any illicit or recreational drugs? No [email or web address] Information not available 07/12/2023 Are you able to walk independently without assistance or assistive devices? YESWOREST [email or web address] Information not available 07/12/2023 Are you able to care for yourself independently? Yes [email or web address] Information not available 07/12/2023 Do you have difficulty dressing, bathing, grooming, or toileting? No [email or web address] Information not available 07/12/2023 Mental Status None recorded. Family History Relationship Description Onset Age of this Age Resolved Age Notes LastModified by Organization Details LastModified Time Mother Anemia Not available 02/28/2023 14:29:22 Mother Malignant neoplasm of breast [email or web address] Not available 2022 14:29:38 Mother History of malignant neoplasm of cervix [email or web address] Not available 2022 14:29:58 Mother Hypertensive disorder [email or web address] Not available 2022 14:30:11 Sister Anemia Not available 02/28/2023 14:29:22 Medical History Condition Response Anemia Y Hypertension Y Gynecological History Statement/Question Response Abnormal Pap N Date of LMP 12/27/2022 Sexually Active? Y Date of Last Pap Smear 03/19/2021 Sexual Problems? N Current Control Method None LMP Approximate Obstetrics History GPAL:G 4 P 2 1 1 3 Type Value Full Term 2 Spontaneous 1 Premature 1 Living 3 Total 4 Past Encounters Encounter ID Performer Location Encounter Start Date Encounter Closed Date Diagnosis/Indication Diagnosis SNOMED-CT Code Diagnosis ICD10 Code Diagnosis IMO Codes Diagnosis Note [id number] Beau Koehler MD [place] [address] [address] 02/28/2023 13:35:47 02/28/2023 14:17:31 [id number] Beau Koehler MD [place] [address],[place] [address] 02/28/2023 13:48:27 02/28/2023 15:36:20 Nausea and vomiting 01051510 R11.2 This patient is a 27 old female who presents for amenorrhea . she has positive test . Ultrasound s performed. She has a 9 week gestation. We discussed care. We discussed her medical and obstetric history. She reports some nausea. Antiemetic was prescribed . We spent 20 minutes face-to-fa ce. More than 50% was counseling . We discussed her history in detail we discussed care for gestationa l hypertensi on and gestationa l diabetes. [id number] Beau Koehler MD [place] [address],[place] [address] 03/22/2023 13:41:03 03/22/2023 14:28:20 screening 638018798 Z36.82 Z3A.12 [id number] Beau Koehler MD [place] [address],[place] [address] 03/22/2023 13:43:17 03/22/2023 15:15:07 Routine care 606074886 Z34.90 [id number] Beau Koehler MD [place] [address],[place] [address] 04/19/2023 13:52:57 04/19/2023 14:37:24 Depressive disorder 20585068 F32.A Routine an tenatal care 142230603 Z34.90 [id number] MD Caleb Osborne [address],[place] [address] 05/17/2023 11:27:50 05/17/2023 12:37:49 screening for malformation 155944844 Z36.3 Z3A.20 [id number] MD Caleb Osborne [address],[place] [address] 05/17/2023 11:29:15 05/17/2023 21:58:28 [id number] MD Caleb Osborne [address],[place] [address] 05/18/2023 10:07:17 05/18/2023 11:17:58 Depressive disorder 04747268 F32.A Routine an tenatal care 338352050 Z34.90 [id number] MD Caleb Osborne [address],[place] [address] 06/15/2023 09:17:14 06/15/2023 10:05:24 screening 999484171 Z36.2 O43.122 Z3A.24 [id number] MD Caleb Osborne [address],[place] [address] 06/15/2023 09:18:16 06/15/2023 10:13:44 Routine care 736293108 Z34.90 Depressive disorder 3548 9007 F32.A [id number] MD Caleb Osborne [address],[place] [address] 07/12/2023 09:56:56 07/12/2023 11:04:17 Placental condition affecting management of mother 446827092 O43.103 Z3A.28 [id number] MD Caleb Osborne [address],[place] [address] 07/12/2023 10:03:34 07/12/2023 11:55:14 Routine care 823667054 Z34.90 [id number] MD Caleb Osborne [address],[place] [address] 07/19/2023 12:17:22 07/19/2023 12:44:44 Polyhydramnios 12984398 O40.3XX0 Z3A.29 [id number] MD Caleb Osborne [address],[place] [address] 07/26/2023 09:34:04 07/26/2023 12:43:07 Routine care 469868719 Z34.90 [id number] MD Caleb Osborne [address],[place] [address] 08/08/2023 15:28:39 08/08/2023 15:57:52 Marginal insertion of umbilical cord 66486990 O43.129 Z87.59 Z3A.32 [id number] MD Caleb Osborne [address],[place] [address] 08/08/2023 15:29:32 08/08/2023 17:23:21 93418907 Z33.1 Past pregn martha history of pre-eclampsia 5324683275 37029 Z87.59 Z3A.32 [id number] MD Caleb Osborne [address],[place] [address] 08/08/2023 15:29:59 08/09/2023 11:38:46 Routine care 812231951 Z34.90 [id number] MD Caleb Osborne [address],[place] [address] 08/15/2023 13:44:13 08/15/2023 14:34:40 Past history of pre-eclampsia 0039938854 37937 Z87.59 Z3A.33 [id number] MD Caleb Osborne [address],[place] [address] 08/15/2023 13:45:26 08/15/2023 15:46:44 Past history of pre-eclampsia 9648400265 43111 Z87.59 Z3A.33 [id number] Beau Koehler MD [facility] [address],[place] [address] 08/15/2023 13:46:13 08/15/2023 15:46:17 Routine care 157761675 Z34.90 [id number] Beau Koehler MD [place] [address],[place] [address] 08/22/2023 14:23:06 08/22/2023 15:06:14 Past history of pre-eclampsia 3208166087 97255 Z87.59 Z3A.34 [id number] RASHAD FLOYD MD [place] [address],[place] [address] 08/22/2023 14:24:06 08/22/2023 15:47:44 Past history of pre-eclampsia [id number] Z87.59 [id number] RASHAD FLOYD MD [facility] [address],[place] [address] 08/22/2023 14:24:41 08/22/2023 17:07:44 Routine care [id number] Z34.93 Past pregn martha history of pre-eclampsia [id number] 04869 Z87.59 Depressive disorder 3548 9007 F32.A Anemia of 2734 2003 O99.019 Addiction [id number] R46.8 1 Gestation period, 34 weeks [id number] Z3A.34 [id number] Beau Koehler MD [facility] [address],[place] [address] 08/29/2023 14:48:26 08/29/2023 16:42:26 Routine care [id number] Z34.90 [id number] MD Caleb Osborne [address],[place] [address] 08/29/2023 14:47:25 08/29/2023 15:28:04 Past history of pre-eclampsia [id number] 68212 Z87.59 Z3A.35 MD Caleb Osborne [address],[place] [address] 08/29/2023 14:47:57 08/29/2023 16:22:12 [id number] Z33.1 Past pregn martha history of pre-eclampsia [id number] 57973 Z87.59 Z3A.35 [id number] MD Caleb Osborne [address],[place] [address] 1 09/06/2023 14:38:42 09/06/2023 15:22:43 Past history of pre-eclampsia [id number] 40026 Z87.59 O43.123 Z3A.36 [id number] MD Caleb Osborne [address],[place] [address] 09/06/2023 14:39:29 09/06/2023 16:28:52 -induced hypertension 47612254 O13.9 [id number] MD Caleb Osborne [address],[place] [address] 09/06/2023 14:39:56 09/06/2023 16:31:35 Routine care [id number] Z34.90 [id number] Beau Koehler MD [facility] [address],[place] [address] 09/12/2023 13:47:45 09/12/2023 14:20:09 Past history of pre-eclampsia [id number] 05083 Z87.59 Z3A.37 [id number] MD Caleb Osborne [address],[place] [address] 09/12/2023 13:48:57 09/12/2023 15:10:51 -induced hypertension [id number] O13.9 [id number] MD Caleb Osborne [address],[place] [address] 1 09/12/2023 15:23:05 09/12/2023 17:22:59 [id number] Z33.1 Routine an tenatal care 240775075 Z34.90 [id number] MD Caleb Osborne [address],[place] [address] 09/19/2023 14:00:39 09/19/2023 15:23:20 Past history of pre-eclampsia [id number] 07728 Z87.59 Z3A.38 [id number] RASHAD FLOYD MD [facility] [address],[place] [address] 09/19/2023 14:49:47 09/19/2023 16:08:45 -induced hypertension [id number] O13.9 [id number] RASHAD FLOYD MD [facility] [address],[place] [address] 09/19/2023 14:50:34 09/19/2023 16:39:01 Past history of pre-eclampsia [id number] 71795 Z87.59 Gestation period, 38 weeks [id number] Z3A.38 Anemia of 2734 2003 O99.019 [id number] Beau Koehler MD [facility] [address],[place] [address] 10/19/2023 12:45:14 10/19/2023 14:33:14 care [id number] Z39.2 This patient is a 28-year-ol d female who presents for care. She is doing okay. She has some pretty marked anxiety. She has follow-up with a psychiatri st her baby is doing well. The baby is bottle feeding. Her bleeding has continued though it is aircraft tool maker. And it is getting aircraft tool maker as time goes on. She has not had intercours e. She wants to use the oral contracept maci pill she was given instructio ns, precaution s, a prescripti on. Risks, benefits, and alternativ es were discussed [id number] RASHAD FLOYD MD [facility] [address],[place] [address] 11/01/2023 17:06:21 11/02/2023 06:07:07 Exposure to sexually transmissible disorder [id number] Z20.2 - partner HSV seropositi ve, denies known outbreak- patient has not had outbreak previously - discussed little usefulness for HSV IgG/IgM; swab sent from area [facility] on left labia- will treat based on results Health Concerns Section Related Observation LastModified by Organization Detai ls LastModified Time None Recorded Concern Status LastModified by Organization Details LastModified Time None Recorded Advance Directives Directive None Recorded Payers Insurance Date Sequence Insurance Name Policy Number Policy Vargas Covered Member ID Vargas Member ID Guarantor Name 09/19/2023 PAYMENT PLAN Ebonie Wiseman 11/13/2023 1 [facility] Marc Wiseman [id number] Ebonie Wiseman 07/24/2023 PAYMENT PLAN Ebonie Wiseman Notes Date Note Type Note Provider Name and Address Organization Details Recorded Time 09/19/2023 text/html Generic HPI TemplateReported by Patient RASHAD FLOYD MD [address], [place], [address], [facility] 09/19/2023 16:34:05 10/19/2023 text/html VisitReported by Patient This patient is a 28-year-old female who presents for care. She is doing okay. She has some pretty marked anxiety. She has follow-up with a psychiatrist her baby is doing well. The baby is bottle feeding. Her bleeding has continued though it is aircraft tool maker. And it is getting aircraft tool maker as time goes on. She has not had intercourse. She wants to use the oral contraceptive pill she was given instructions, precautions, a prescription. Risks, benefits, and alternatives were discussed Beau Koehler MD [address], [place], [address], [facility] 10/19/2023 14:18:39 11/01/2023 text/html Patient presents for evaluation of possible HSV exposure and outbreak. She found out that her partner had bloodwork for STDs and was positive for HSV. She denies any outbreaks from her partner that she knows of. She currently has an area on the left inner labia majora that is irritated and raw. She denies blisters or ulcers. She denies other positive test results from her partner, and declines other STD testing. RASHAD FLOYD MD [address], [place], [address], [facility] 11/01/2023 22:44:43 OBGyn Episode Ob Episode Information Episode Created Date Number of Fetuses Patient Bloodtype Patient rh Status Prepregnancy Weight lbs Domestic Partner Domestic Partner Phone Father Name Hydraulic Hammer Operator Status 02/29/20 23 1 CLOSED Fetus Data First Name Last Name Admitted to NICU Weight (g) Sex Living Outcome Pediatric Complications Fetus ID Race Codes Race Delivery Type 3401.94 Full Term 52888 Vaginal Delivery Gigi Calculation Initial Gigi Date Initial Exam Date Initial Exam Provider Initial Ultrasound Date Last Menstrual Period Date Ultra Sound Weeks Gestation 0 Eighteen To Twenty Week Gigi Update Ultra Sound Date Fundal Height At Umbil Quickening Date Ultra Sound Latest Weeks Gestation Final Gigi Confirmed By Final Gigi Confirmed Date Final Gigi Date Ultra Sound Latest Days Gestation 0 0 Menstrual History Last Menstrual Date Menses Monthly On Bcp Conception Prior Menses Frequency Hcg Plus Date Menarche Onset Age Delivery Information Delivery Date Delivery Type Labor Anesthesia Weeks Gestation Incision Type Labor Labor Length Hrs Delivered By Post Complications Tubal Sterilization Discharge Date Comments 0 39 Rafael pre-eclam psia Discharge Information Feeding Method Contraceptive Method Maternal HG B and HCT Levels Ob Episode Information Episode Created Date Number of Fetuses Patient Bloodtype Patient rh Status Prepregnancy Weight lbs Domestic Partner Domestic Partner Phone Father Name Hydraulic Hammer Operator Status 02/29/20 23 1 CLOSED Fetus Data First Name Last Name Admitted to NICU Weight (g) Sex Living Outcome Pediatric Complications Fetus ID Race Codes Race Delivery Type , Spontane ous [id number] Gigi Calculation Initial Gigi Date Initial Exam Date Initial Exam Provider Initial Ultrasound Date Last Menstrual Period Date Ultra Sound Weeks Gestation 0 Eighteen To Twenty Week Gigi Update Ultra Sound Date Fundal Height At Umbil Quickening Date Ultra Sound Latest Weeks Gestation Final Gigi Confirmed By Final Gigi Confirmed Date Final Gigi Date Ultra Sound Latest Days Gestation 0 0 Menstrual History Last Menstrual Date Menses Monthly On Bcp Conception Prior Menses Frequency Hcg Plus Date Menarche Onset Age Delivery Information Delivery Date Delivery Type Labor Anesthesia Weeks Gestation Incision Type Labor Labor Length Hrs Delivered By Post Complications Tubal Sterilization Discharge Date Comments 1 Discharge Information Feeding Method Contraceptive Method Maternal HG B and HCT Levels Ob Episode Information Episode Created Date Number of Fetuses Patient Bloodtype Patient rh Status Prepregnancy Weight lbs Domestic Partner Domestic Partner Phone Father Name Hydraulic Hammer Operator Status 02/29/20 23 1 CLOSED Fetus Data First Name Last Name Admitted to NICU Weight (g) Sex Living Outcome Pediatric Complications Fetus ID Race Codes Race Delivery Type 3345.24 1 Prematur e 27880 Vaginal Delivery Gigi Calculation Initial Gigi Date Initial Exam Date Initial Exam Provider Initial Ultrasound Date Last Menstrual Period Date Ultra Sound Weeks Gestation 0 Eighteen To Twenty Week Gigi Update Ultra Sound Date Fundal Height At Umbil Quickening Date Ultra Sound Latest Weeks Gestation Final Gigi Confirmed By Final Gigi Confirmed Date Final Gigi Date Ultra Sound Latest Days Gestation 0 0 Menstrual History Last Menstrual Date Menses Monthly On Bcp Conception Prior Menses Frequency Hcg Plus Date Menarche Onset Age Delivery Information Delivery Date Delivery Type Labor Anesthesia Weeks Gestation Incision Type Labor Labor Length Hrs Delivered By Post Complications Tubal Sterilization Discharge Date Comments 2 36 [place] risk Discharge Information Feeding Method Contraceptive Method Maternal HG B and HCT Levels Ob Episode Information Episode Created Date Number of Fetuses Patient Bloodtype Patient rh Status Prepregnancy Weight lbs Domestic Partner Domestic Partner Phone Father Name Hydraulic Hammer Operator Status 03/22/19 24 1 O Negative 170 CLOSED Fetus Data First Name Last Name Admitted to NICU Weight (g) Sex Living Outcome Pediatric Complications Fetus ID Race Codes Race Delivery Type 3316.89 15 M true Full Term 51060 Vaginal Delivery Problems Problem Notes Increased AFIelevated 2hr le gabi on 3 hr gtt - 08/07 - review blood sugar log, started checking 07/29 checking for 2 weeks to rule in/out GDM. Problem Name Start Date End Date Resolution Snomed Code Not e Chronic depression [id number] s ertraline and bupropion Anemia of [id number] 07/29 - Pt cannot afford IV iron at this time. Rx sent for BID iron Past history of pre-eclampsia [id number] X2 RhD negative [id number] rhogam at 28wks -induced hypertension [id number] Addiction SELFRESOLVED [id number] history of meth addiction, in recovery, in program at [facility], has patient case coordinator Gigi Calculation Initial Gigi Date Initial Exam Date Initial Exam Provider Initial Ultrasound Date Last Menstrual Period Date Ultra Sound Weeks Gestation 10/03/2023 03/22/2023 02/28/2023 12/27/2022 8 Eighteen To Twenty Week Gigi Update Ultra Sound Date Fundal Height At Umbil Quickening Date Ultra Sound Latest Weeks Gestation Final Gigi Confirmed By Final Gigi Confirmed Date Final Gigi Date Ultra Sound Latest Days Gestation 0 [email or web address] 03/22/2023 10/03/19 24 0 Pre-rajinder Flowsheet Flowsheet Date 03/22/2023 Lentz Score Blood Edema Fundus Height Fundus Units Glucose Ketones Leukocytes Nitrite Labor Signs Protein Cervic Dilation Cervic Effacement Cervic Station Type Weight in lbs Pre/Post Dialysis Refused Weight 171.221552421796 BP Diastolic BP Location Tested BP Systolic BP Type 78 R arm 121 sitting Fetus Heart Rate Present A 164 Fetus Movement Comments 27-year-old 5 para 1 112 at 12 weeks who presents for initial care. She is doing well. Her nausea is beginning to resolve. She is vaccinated for COVID. She was given vaccine recommendations. We talked about care in detail. She does have some unique obstetric history. Includes preeclampsia and severe anemia. She is Rh negative. She will begin routine care. She will follow up in 4 weeks. Flowsheet Date 04/19/2023 Lentz Score Blood Edema Fundus Height Fundus Units Glucose Ketones Leukocytes Nitrite Labor Signs Protein Cervic Dilation Cervic Effacement Cervic Station 15 Type Weight in lbs Pre/Post Dialysis Refused Weight 178.007445840028 BP Diastolic BP Location Tested BP Systolic BP Type 83 L arm 126 sitting Fetus Heart Rate Present A 145 Fetus Movement A Yes Comments to restart sertraline at 50m g. she had been seeing therapist 2x per week, Flowsheet Date 05/17/2023 Lentz Score Blood Edema Fundus Height Fundus Units Glucose Ketones Leukocytes Nitrite Labor Signs Protein Cervic Dilation Cervic Effacement Cervic Station Type Weight in lbs Pre/Post Dialysis Refused BP Diastolic BP Location Tested BP Systolic BP Type Fetus Heart Rate Present Fetus Movement Comments Flowsheet Date 05/17/2023 Lentz Score Blood Edema Fundus Height Fundus Units Glucose Ketones Leukocytes Nitrite Labor Signs Protein Cervic Dilation Cervic Effacement Cervic Station Type Weight in lbs Pre/Post Dialysis Refused BP Diastolic BP Location Tested BP Systolic BP Type Fetus Heart Rate Present Fetus Movement Comments Flowsheet Date 05/18/2023 Lentz Score Blood Edema Fundus Height Fundus Units Glucose Ketones Leukocytes Nitrite Labor Signs Protein Cervic Dilation Cervic Effacement Cervic Station neg none 20 none trace Type Weight in lbs Pre/Post Dialysis Refused Weight 184.695476136622 BP Diastolic BP Location Tested BP Systolic BP Type 78 L arm 122 sitting Fetus Heart Rate Present A 145 Fetus Movement A Yes Comments worsening depression, agreed to add bupropion 150 XL. Discussed safety. Flowsheet Date 06/15/2023 Lentz Score Blood Edema Fundus Height Fundus Units Glucose Ketones Leukocytes Nitrite Labor Signs Protein Cervic Dilation Cervic Effacement Cervic Station Type Weight in lbs Pre/Post Dialysis Refused BP Diastolic BP Location Tested BP Systolic BP Type Fetus Heart Rate Present Fetus Movement Comments Flowsheet Date 06/15/2023 Lentz Score Blood Edema Fundus Height Fundus Units Glucose Ketones Leukocytes Nitrite Labor Signs Protein Cervic Dilation Cervic Effacement Cervic Station none Type Weight in lbs Pre/Post Dialysis Refused Weight 188.318450544642 BP Diastolic BP Location Tested BP Systolic BP Type 86 L arm 135 sitting Fetus Heart Rate Present Fetus Movement A Yes Comments in bed a lot for depression, sertraline increased to 100mg, round ligament pain Flowsheet Date 07/12/2023 Lentz Score Blood Edema Fundus Height Fundus Units Glucose Ketones Leukocytes Nitrite Labor Signs Protein Cervic Dilation Cervic Effacement Cervic Station Type Weight in lbs Pre/Post Dialysis Refused BP Diastolic BP Location Tested BP Systolic BP Type Fetus Heart Rate Present Fetus Movement Comments Flowsheet Date 07/12/2023 Lentz Score Blood Edema Fundus Height Fundus Units Glucose Ketones Leukocytes Nitrite Labor Signs Protein Cervic Dilation Cervic Effacement Cervic Station neg none none trace Type Weight in lbs Pre/Post Dialysis Refused Weight 187.838135006572 BP Diastolic BP Location Tested BP Systolic BP Type 71 L arm 128 sitting Fetus Heart Rate Present A 144 Fetus Movement A Yes Comments Borderline SAMUEL, getting RhoG AM today or tomorrow. , no complaints, routine care, normal growth ultrasound today Flowsheet Date 07/19/2023 Lentz Score Blood Edema Fundus Height Fundus Units Glucose Ketones Leukocytes Nitrite Labor Signs Protein Cervic Dilation Cervic Effacement Cervic Station Type Weight in lbs Pre/Post Dialysis Refused BP Diastolic BP Location Tested BP Systolic BP Type Fetus Heart Rate Present Fetus Movement Comments Flowsheet Date 07/26/2023 Lentz Score Blood Edema Fundus Height Fundus Units Glucose Ketones Leukocytes Nitrite Labor Signs Protein Cervic Dilation Cervic Effacement Cervic Station neg none none trace Type Weight in lbs Pre/Post Dialysis Refused Weight 185.706748542464 BP Diastolic BP Location Tested BP Systolic BP Type 82 L arm 123 sitting Fetus Heart Rate Present A 145 Fetus Movement A Yes Comments Patient c/o of some back martin ns , recent relapse on methamphetamine, was instructed to report her manager social responsibility, instructed patient to get RhoGAM at the hospital. She has failed connect with the infusion center. She needs iron infusion. Needs 3 hour glucose tolerance test OB team is working on getting this Completed. Flowsheet Date 08/08/2023 Lentz Score Blood Edema Fundus Height Fundus Units Glucose Ketones Leukocytes Nitrite Labor Signs Protein Cervic Dilation Cervic Effacement Cervic Station Type Weight in lbs Pre/Post Dialysis Refused BP Diastolic BP Location Tested BP Systolic BP Type Fetus Heart Rate Present Fetus Movement Comments Flowsheet Date 08/08/2023 Lentz Score Blood Edema Fundus Height Fundus Units Glucose Ketones Leukocytes Nitrite Labor Signs Protein Cervic Dilation Cervic Effacement Cervic Station Type Weight in lbs Pre/Post Dialysis Refused BP Diastolic BP Location Tested BP Systolic BP Type Fetus Heart Rate Present Fetus Movement Comments Flowsheet Date 08/08/2023 Lentz Score Blood Edema Fundus Height Fundus Units Glucose Ketones Leukocytes Nitrite Labor Signs Protein Cervic Dilation Cervic Effacement Cervic Station Type Weight in lbs Pre/Post Dialysis Refused Weight 191.808866868886 BP Diastolic BP Location Tested BP Systolic BP Type 79 119 Fetus Heart Rate Present Fetus Movement Comments Decelerations noted during N ST. Pt to L & D for extended monitoring per SB. Rosanne Henry RN Flowsheet Date 08/15/2023 Lentz Score Blood Edema Fundus Height Fundus Units Glucose Ketones Leukocytes Nitrite Labor Signs Protein Cervic Dilation Cervic Effacement Cervic Station Type Weight in lbs Pre/Post Dialysis Refused BP Diastolic BP Location Tested BP Systolic BP Type Fetus Heart Rate Present Fetus Movement Comments Flowsheet Date 08/15/2023 Lentz Score Blood Edema Fundus Height Fundus Units Glucose Ketones Leukocytes Nitrite Labor Signs Protein Cervic Dilation Cervic Effacement Cervic Station Type Weight in lbs Pre/Post Dialysis Refused BP Diastolic BP Location Tested BP Systolic BP Type Fetus Heart Rate Present Fetus Movement Comments Flowsheet Date 08/15/2023 Lentz Score Blood Edema Fundus Height Fundus Units Glucose Ketones Leukocytes Nitrite Labor Signs Protein Cervic Dilation Cervic Effacement Cervic Station neg none none trace Type Weight in lbs Pre/Post Dialysis Refused Weight 189.370363908729 BP Diastolic BP Location Tested BP Systolic BP Type 74 L arm 127 sitting Fetus Heart Rate Present A 124 Fetus Movement A Yes Comments Patient c/o of nausea and vo miting. Along with some pains. NORMAL TESTING, WANTS TO DOCUMENT SOBRIETY TODAY -URINE DRUG SCREEN Flowsheet Date 08/22/2023 Lentz Score Blood Edema Fundus Height Fundus Units Glucose Ketones Leukocytes Nitrite Labor Signs Protein Cervic Dilation Cervic Effacement Cervic Station Type Weight in lbs Pre/Post Dialysis Refused BP Diastolic BP Location Tested BP Systolic BP Type Fetus Heart Rate Present Fetus Movement Comments Flowsheet Date 08/22/2023 Lentz Score Blood Edema Fundus Height Fundus Units Glucose Ketones Leukocytes Nitrite Labor Signs Protein Cervic Dilation Cervic Effacement Cervic Station Type Weight in lbs Pre/Post Dialysis Refused BP Diastolic BP Location Tested BP Systolic BP Type Fetus Heart Rate Present Fetus Movement Comments Flowsheet Date 08/22/2023 Lentz Score Blood Edema Fundus Height Fundus Units Glucose Ketones Leukocytes Nitrite Labor Signs Protein Cervic Dilation Cervic Effacement Cervic Station Type Weight in lbs Pre/Post Dialysis Refused Weight 189.802379100286 BP Diastolic BP Location Tested BP Systolic BP Type 82 123 Fetus Heart Rate Present A 155 Fetus Movement A Yes Comments Good movement. No cont ractions, bleeding, LOF. Discussed preadmission. BPP 12/26 today. Would like UDS for documented sobriety, doing well. Will run today. RTC 2 weeks. Flowsheet Date 08/29/2023 Lentz Score Blood Edema Fundus Height Fundus Units Glucose Ketones Leukocytes Nitrite Labor Signs Protein Cervic Dilation Cervic Effacement Cervic Station Type Weight in lbs Pre/Post Dialysis Refused BP Diastolic BP Location Tested BP Systolic BP Type Fetus Heart Rate Present Fetus Movement Comments Flowsheet Date 08/29/2023 Lentz Score Blood Edema Fundus Height Fundus Units Glucose Ketones Leukocytes Nitrite Labor Signs Protein Cervic Dilation Cervic Effacement Cervic Station Type Weight in lbs Pre/Post Dialysis Refused BP Diastolic BP Location Tested BP Systolic BP Type Fetus Heart Rate Present Fetus Movement Comments Flowsheet Date 08/29/2023 Lentz Score Blood Edema Fundus Height Fundus Units Glucose Ketones Leukocytes Nitrite Labor Signs Protein Cervic Dilation Cervic Effacement Cervic Station neg none 35 none trace Type Weight in lbs Pre/Post Dialysis Refused Weight 193.39832684849 BP Diastolic BP Location Tested BP Systolic BP Type 80 131 Fetus Heart Rate Present A 145 Fetus Movement A Yes Comments this patient has no complain ts today. She is doing her testing does normal. She is doing her follow-up for her addiction recovery. Flowsheet Date 09/06/2023 Lentz Score Blood Edema Fundus Height Fundus Units Glucose Ketones Leukocytes Nitrite Labor Signs Protein Cervic Dilation Cervic Effacement Cervic Station Type Weight in lbs Pre/Post Dialysis Refused BP Diastolic BP Location Tested BP Systolic BP Type Fetus Heart Rate Present Fetus Movement Comments Flowsheet Date 09/06/2023 Lentz Score Blood Edema Fundus Height Fundus Units Glucose Ketones Leukocytes Nitrite Labor Signs Protein Cervic Dilation Cervic Effacement Cervic Station Type Weight in lbs Pre/Post Dialysis Refused BP Diastolic BP Location Tested BP Systolic BP Type Fetus Heart Rate Present Fetus Movement Comments Flowsheet Date 09/06/2023 Lentz Score Blood Edema Fundus Height Fundus Units Glucose Ketones Leukocytes Nitrite Labor Signs Protein Cervic Dilation Cervic Effacement Cervic Station neg none none 2+ 2cm Type Weight in lbs Pre/Post Dialysis Refused Weight 196.176879014513 BP Diastolic BP Location Tested BP Systolic BP Type 82 L arm 130 sitting Fetus Heart Rate Present A 145 Fetus Movement A Yes Comments No complaints, no problems, routine care, normal drug screening, cervix is way posterior but soft and open. We would like to be induced at 39 weeks. Stable blood pressures Flowsheet Date 09/12/2023 Lentz Score Blood Edema Fundus Height Fundus Units Glucose Ketones Leukocytes Nitrite Labor Signs Protein Cervic Dilation Cervic Effacement Cervic Station Type Weight in lbs Pre/Post Dialysis Refused BP Diastolic BP Location Tested BP Systolic BP Type Fetus Heart Rate Present Fetus Movement Comments Flowsheet Date 09/12/2023 Lentz Score Blood Edema Fundus Height Fundus Units Glucose Ketones Leukocytes Nitrite Labor Signs Protein Cervic Dilation Cervic Effacement Cervic Station Type Weight in lbs Pre/Post Dialysis Refused Weight 194.092062734079 BP Diastolic BP Location Tested BP Systolic BP Type 87 L arm 126 sitting Fetus Heart Rate Present Fetus Movement Comments Flowsheet Date 09/12/2023 Lentz Score Blood Edema Fundus Height Fundus Units Glucose Ketones Leukocytes Nitrite Labor Signs Protein Cervic Dilation Cervic Effacement Cervic Station Type Weight in lbs Pre/Post Dialysis Refused BP Diastolic BP Location Tested BP Systolic BP Type Fetus Heart Rate Present Fetus Movement Comments Flowsheet Date 09/19/2023 Lentz Score Blood Edema Fundus Height Fundus Units Glucose Ketones Leukocytes Nitrite Labor Signs Protein Cervic Dilation Cervic Effacement Cervic Station Type Weight in lbs Pre/Post Dialysis Refused BP Diastolic BP Location Tested BP Systolic BP Type Fetus Heart Rate Present Fetus Movement Comments Flowsheet Date 09/19/2023 Lentz Score Blood Edema Fundus Height Fundus Units Glucose Ketones Leukocytes Nitrite Labor Signs Protein Cervic Dilation Cervic Effacement Cervic Station Type Weight in lbs Pre/Post Dialysis Refused BP Diastolic BP Location Tested BP Systolic BP Type Fetus Heart Rate Present Fetus Movement Comments Flowsheet Date 09/19/2023 Lentz Score Blood Edema Fundus Height Fundus Units Glucose Ketones Leukocytes Nitrite Labor Signs Protein Cervic Dilation Cervic Effacement Cervic Station 1cm 50% -3 Type Weight in lbs Pre/Post Dialysis Refused Weight 201.177803689463 BP Diastolic BP Location Tested BP Systolic BP Type 74 138 Fetus Heart Rate Present A 145 Fetus Movement A Yes Comments Doing well, baby active. No ctx, LOF, VB. More pelvic pressure. BPP 12/26. Planning for induction 09/25 at 39 weeks. SVE /-3. Menstrual History Last Menstrual Date Menses Monthly On Bcp Conception Prior Menses Frequency Hcg Plus Date Menarche Onset Age 1012/27/2022 Genetic Screening And Infection History Question Response Note Mental Retardation/Autism false Patient's Age Will Be 35 Years Or Older At Estim ated Date of Delivery false Thalassemia (Guatemalan, Sinhala, Mediterranean, Or Background): MCV < 80 false Neural Tube Defect (Meningomyelocele, Spina Bifi da, Or Anencephaly) false Congenital Heart Defect false Down Syndrome false Rick-Sachs (eg, Yarsani, Cajun, British-Congolese) f alse Meng Disease false Sickle Cell Disease Or Trait () false Hemophilia Or Other Blood Disorders false Muscular Dystrophy false Cystic Fibrosis false [place]'s Chorea false Intellectual Disability/Autism false If Yes, Was Person Tested For Fragile X? false Other Inherited Genetic Or Chromosomal Disorder false Maternal Metabolic Disorder (eg, Type 1 Diabetes , PKU) false Patient Or Baby's Father Had A Child With Defects Not Listed Above false Recurrent Loss, Or A Stillbirth false Medications (including Suppl ements, Vitamins, Herbs, OTC Drugs), Illicit/Recreational Drugs, Alcohol false If Yes, Agent(s) And Strength/Dosage false Any Other Genetic History false Live With Someone With TB Or Exposed To TB false Patient Or Partner Has History Of Genital Herpes false Rash Or Viral Illness Since Last Menstrual Perio d false History Of STD, Gonorrhea, Chlamydia, HPV, Syphi lis false Other Infection History false History of HIV false History of Hepatitis false Prior GBS-infected child false Hemoglobinopathy Or Carrier false Other Structural Defect false Recent Travel History Outside of Country false Delivery Information Delivery Date Delivery Type Labor Anesthesia Weeks Gestation Incision Type Labor Labor Length Hrs Delivered By Post Complications Tubal Sterilization Discharge Date Comments 4 Induce d [facility]- [facility] 39 false Beau Koehler MD Addiction ,Anemia of ,Chronic depressio n,Past history of pre-eclam psia,Preg clay-ind uced hypertens ion,RhD negative Discharge Information Feeding Method Contraceptive Method Maternal HG B and HCT Levels
--- OUTSIDE RECORDS SUMMARY | 2025-01-28 17:04 | XMS_ITS | Clinical Summary ---
Author Organization [facility] Address [address] [place] [address] Phone Care Team Providers Care Scrap Dealer Name Role Phone Provider, None Primary Care Provider Unavailabl e Allergies No known active allergies Medications No known medications Social History Tobacco Use Types Packs/Day Years Used Date Smoking Tobacco: Never Smokeless Tobacco: Never Tobacco Cessation:Counseling Given: Not Answered Alcohol Use Standard Drinks/Week Comments Yes 0 (1 standard drink = 0.6 oz pur e alcohol) Comments Unknown Sex and Gender Information Value Date Recorded Sex Assigned at Not on file Legal Sex Female 12:04 AM CDT Gender Identity Not on file Sexual Orientation Not on file Last Filed Vital Signs Vital Sign Reading Time Taken Comments Blood Pressure 121/65 05/30/2022 12:30 AM CDT Pulse 120 05/30/2022 12:30 AM CDT Temperature 36.1 C (97 F) 05/30/2022 12:30 AM CDT Respiratory Rate 20 05/30/2022 12:30 AM CDT Oxygen Saturation 95% 05/30/2022 12:30 AM CDT Inhaled Oxygen Concentration - - Weight 63.5 kg (140 lb) 05/30/2022 12:30 AM CDT Height 162.6 cm (5' 4) 05/30/2022 12:30 AM CDT Body Mass Index 24.03 05/30/2022 12:30 AM CDT Plan of Treatment Health Maintenance Due Date Last Done Comments Hepatitis C Virus (HCV) Screening 1995 Hepatitis B Immunization (3 of 3 - Hep B Twinrix 3-dose series) 07/09/2014 02/06/2014, 01/08/2014 Human Papillomavirus (HPV) Immunization (1 - 3-dose SCDM series) 06/27/2022 Influenza Immunization (#1) 2024 01/08/2014 SARS-COV-2 Immunization (2024- season) 2024 Respiratory Syncytial Virus (RSV) Immunization (Adult) (1 - 1-dose 75+ series) 06/27/2070 DTaP/Tdap/Td Immunization Discontinued 01/08/2014 Meningococcal Immunization (ACWY) Completed 01/08/2014 TdaP Immunization Completed 01/08/2014 Pneumococcal Immunization Combined Aged Out No longer eligible based on patient's age to complete this topic Rotavirus Immunization Aged Out No lo nger eligible based on patient's age to complete this topic Insurance MEDICAID AETNA [facility] Care Teams Scrap Dealer Relationship Specialty Start Date End Date Provider, None [place] PCP - General 05/30/22
[2025-01-28 17:10] VITALS: BP 135/87; PULSE 105; RESP 18; TEMP 37.2; O2SAT 98
--- NOTE | 2025-01-28 17:40 | ED.EAR ---
HPI - Ear Problem General Chief complaint: Ear Stated complaint: Left Ear Pain Time Seen by Provider: 01/28/25 17:25 Source: patient, RN notes reviewed and old records reviewed Mode of arrival: ambulatory Limitations: no limitations History of Present Illness HPI Narrative: 29 year old female presents to [facility] care with complaints of pain to her left ear which started yesterday morning. Patient reports that she went tot the dentist on Sunday and had cavities filled and initially thought maybe related to dental procedure, called to dentist and was told she probably needed to have ear checked.Patient reports that she has extreme discomfort to her left ear with noted tragal tenderness on exam. Patient reports that sh has taken Ibuprofen for her discomfort with little relief of her pain MD Complaint: ear pain and decreased hearing Location: left ear Duration: constant Severity: severe Discharge from ear: Reports no Treatment prior to arrival: oral analgesic (Ibuprofen) Related Data Home Medications ?Medication ?Instructions ?Recorded ?Confirmed ?Last Taken ?Type sertraline 50 mg tablet 100 mg PO DAILY 06/20/23 09/26/23 09/26/23 History 0600 bupropion HCl 150 mg 24 hr tablet, 150 mg PO QAM 08/10/23 09/26/23 09/26/23 History extended release (Wellbutrin XL) 0600 topiramate 25 mg tablet mg 03/17/24 Unknown History quetiapine 100 mg tablet mg 01/28/25 Unknown History serdexmethylphenidate 39.2 01/28/25 Unknown History mg-dexmethylphenidate 7.8 mg capsule (Azstarys) Allergies Allergy/AdvReac Type Severity Reaction Status Date / Time amoxicillin Allergy Mild Hives Verified 01/28/25 17:21 Review of Systems Review of Systems: CONSTITUTIONAL: Denies fever, chills, or sweats. EYES: Denies visual changes, redness, or discharge. ENT: Denies rhinorrhea, congestion, sore throat, positive left ear otalgia. CARDIOVASCULAR: Denies chest pain, palpitations, or edema. RESPIRATORY: Denies cough or dyspnea. GASTROINTESTINAL: Denies abdominal pain, nausea, vomiting, or diarrhea. GENITOURINARY: Denies dysuria or hematuria. SKIN: Denies rash or itching. MUSCULOSKELETAL: Denies back pain, joint pain, or myalgia. NEUROLOGIC: Denies headache, numbness, or weakness. PSYCHIATRIC: Reports history of anxiety or depression. 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 There is no relevant family history pertinent to the presenting complaint Exam Narrative: GENERAL: Well-appearing, well-nourished, and in no acute distress. HEAD: Normocephalic, atraumatic. EYES: PERRLA and EOMI. ENT: Nares clear, no rhinorrhea or epistaxis. Mucous membranes moist.Left TM red and bulging, ear canal excoriated some tragal tenderness noted, Righ TM normal with good light reflex, throat pink with no redness, tonsils absent NECK: Supple. no lymphadenopathy CHEST: Clear to auscultation. No respiratory distress. SAO2 98% on room air HEART: Regular rate and rhythm. No murmur heard. Normal peripheral pulses. ABDOMEN: Soft, nontender, nondistended, normal active bowel sounds. EXTREMITIES: Normal range of motion. No edema. SKIN: Warm, dry, no rash. NEURO: No focal deficits. Alert and oriented x3. Course Course Emergency Course: Patient is aware of diagnosis, understands and agrees to treatment plan.? Anticipatory guidance given.? Patient agrees to follow-up as directed and is aware of reasons to seek care at the emergency department. Portions of this record may have been created with voice recognition software Level of Care: Express Care Visit Vital Signs Vital signs: Vital Signs Temperature 37.2 C 01/28/25 17:10 Pulse Rate 105 H 01/28/25 17:10 Respiratory Rate 18 01/28/25 17:10 Blood Pressure 135/87 01/28/25 17:10 Pulse Oximetry 98 01/28/25 17:10 Oxygen Delivery Room Air 01/28/25 17:10 Temperature 37.2 C 01/28/25 17:10 Pulse Rate 105 H 01/28/25 17:10 Respiratory Rate 18 01/28/25 17:10 Blood Pressure 135/87 01/28/25 17:10 Pulse Oximetry 98 01/28/25 17:10 Oxygen Delivery Room Air 01/28/25 17:10 Reviewed Medical Decision Making MDM Narrative Medical decision making narrative: Exam findings and imaging show no acute concerns or changes; patient is non-toxic appearing and is in no distress.? Patient is appropriate for outpatient treatment and follow-up Differential Diagnosis Differential Diagnosis: URI, otitis media, otitis externa, otalgia Medical Records Medical records reviewed: Yes I reviewed the external patient's medical records. Vital Signs Vital Signs: Vital Signs Temperature 37.2 C 01/28/25 17:10 Pulse Rate 105 H 01/28/25 17:10 Respiratory Rate 18 01/28/25 17:10 Blood Pressure 135/87 01/28/25 17:10 Pulse Oximetry 98 01/28/25 17:10 Oxygen Delivery Room Air 01/28/25 17:10 Temperature 37.2 C 01/28/25 17:10 Pulse Rate 105 H 01/28/25 17:10 Respiratory Rate 18 01/28/25 17:10 Blood Pressure 135/87 01/28/25 17:10 Pulse Oximetry 98 01/28/25 17:10 Oxygen Delivery Room Air 01/28/25 17:10 reviewed Critical Care Time Critical Care Time Critical Care Time: No Discharge Plan Discharge Clinical Impression: Acute left otitis media Otitis externa Qualifiers: Otitis externa type: diffuse Chronicity: acute Laterality: left Qualified Code(s): H60.312 - Diffuse otitis externa, left ear Patient Disposition: Home Condition: Stable Instructions: Antibiotic Form, Ear Infection (ED), Earache (ED) Additional Instructions: Increase fluids especially juices and water [id number] cough and cold medicine of your choice for your symptoms Steroids as directed--take with food ear drops as prescribed to left ear heat to the face 20-30 minutes 4-6 times a day for pain Salt water gargles, throat lozenges or throat sprays as desired Antibiotic as directed--finished the medication Tylenol or ibuprofen for any fever pain If your symptoms persist, change or worsen significantly before you can contact your personal physician then please, without delay, go to the emergency department for further evaluation. Follow-up with PCP in 7-10 days or sooner if needed Follow up with PCP soon in regards to your blood pressure which is elevated above threshold for referral. Blood pressure above 120/80 may indicate pre-hypertension.135/87 Patient Language: Jamaican Prescriptions: New methylprednisolone [Medrol (Tono)] 4 mg tablets,dose pack See Rx Instructions .ROUTE .COMPLEX Qty: 21 0RF Rx Instructions: orally per package directions azithromycin 250 mg tablet See Rx Instructions .ROUTE .COMPLEX Qty: 6 0RF Rx Instructions: For 250 mg dose pack: take 500 mg today (day 1), then 250 mg for 4 days (days 2-5) ofloxacin 0.3 % drops 5 drp LEFT EAR BID 7 Days Qty: 10 0RF No Action sertraline 50 mg tablet 100 mg PO DAILY MDD 100 quetiapine 100 mg tablet Azstarys 39.2 mg- 7.8 mg capsule topiramate 25 mg tablet bupropion HCl [Wellbutrin XL] 150 mg Tablet Extended Release 24 Hr 150 mg PO QAM Follow-up/Referrals: PHYSICIAN,AGRICULTURE LABORER [Primary Care Provider, Internal Medicine] Time of Disposition: 17:45 Quality Malissa Coma Scale Eyes: Open Verbal: Oriented and Alert Motor: Follows Commands Malissa Coma Total Score: 15
== END 2025-01-28 17:53 | disposition home or self-care (01) ==
PROVIDERS: Emergency Provider Registered Nurse
DX: H66.92 Otitis media, unspecified, left ear (principal); H60.312 Diffuse otitis externa, left ear; F41.9 Anxiety disorder, unspecified; F32.A Depression, unspecified; Z87.891 Personal history of nicotine dependence
CPT/HCPCS: 99213; G0463